=== PATIENT | male | born 1975 | race Hispanic/Latino ===

== ENCOUNTER 2018-12-02 13:07 | Emergency (ER) | payer MEDICARE ==
[2018-12-02] MEDS ORDERED: NACL 0.9% 1000 ML 1,000 ML IV ONE (13:22)
--- NOTE | 2018-12-02 13:22 | Emergency Department Report ---
Chief Complaint: Weakness Stated Complaint: FLU LIKE SYMPTOMS Time Seen by Provider: 12/02/18 13:21 - HPI History of Present Illness: rx hydorcort synthroid zofran omeprozole zyrtec see list cc flu like symptoms weakness pcp none in [place] pcp in [place] [id number] allergy flu shot sulfa singulair lasix trina completed MSE screening note: Focused history and physical exam performed. Due to findings the following was ordered: ED Disposition for MSE Condition: Stable
[2018-12-02 14:09] LABS: Basophils # (Auto) 0.1 K/mm3 (0.0-0.1); Basophils % (Auto) 0.7 % (0.0-1.8); Eosinophils # (Auto) 0.2 K/mm3 (0.0-0.4); Eosinophils % (Auto) 1.6 % (0.0-4.3); Hematocrit 38.8 % (35.5-45.6); Hemoglobin 12.7 gm/dl (11.8-15.2); Lymphocytes # (Auto) 1.7 K/mm3 (1.2-5.4); Lymphocytes % (Auto) 13.4 % (13.4-35.0); Mean Corpuscular HGB Conc 33 % (32-34); Mean Corpuscular Volume 87 fl (84-94); Monocytes # (Auto) 1.1 K/mm3 (0.0-0.8); Monocytes % (Auto) 8.6 % (0.0-7.3); Platelet Count 244 K/mm3 (140-440); Red Blood Count 4.45 M/mm3 (3.65-5.03); Red Cell Distribution Width 15.1 % (13.2-15.2)
[2018-12-02 14:31] LABS: Creatine Kinase MB 1.7 ng/mL (0.0-4.0)
--- NOTE | 2018-12-02 14:36 | XRay Report ---
ROUTINE CHEST, TWO VIEWS: HISTORY: Weakness. The trachea, heart, mediastinal contour, lung shepherd and bony thorax are unremarkable. IMPRESSION: Unremarkable chest x-ray.
[2018-12-02 14:37] LABS: Alanine Aminotransferase 37 units/L (7-56); Albumin 4.1 g/dL (3.9-5); BUN/Creatinine Ratio 18; Blood Urea Nitrogen 16 mg/dL (9-20); Calcium 9.3 mg/dL (8.4-10.2); Hemolysis Index 5
[2018-12-02 14:42] LABS: Free T4 (Free Thyroxine) 2.03 ng/dL (0.76-1.46)
[2018-12-02] MEDS ORDERED: ZOFRAN IV ONE (17:29)
--- NOTE | 2018-12-02 17:33 | Emergency Department Report ---
ED General Adult HPI - General Chief complaint: Weakness Stated complaint: FLU LIKE SYMPTOMS Time Seen by Provider: 12/02/18 13:21 Source: patient Mode of arrival: Ambulatory Limitations: No Limitations - History of Present Illness Initial comments: Pt is a 43 yo male who presents to the ED with c/o N/V/D that began three days ago. Pt has associated subjective fever, cough, and sore throat. Pt does not report SOB, urinary sx, or any other sx. Pt has a reported hx of secondary adrenal insufficiency, medel hypopituitary, and hypothyroidism. Pt states he sees a supervisor silvering department. Pt states that he takes 50 mg of hydrocortisone daily. Severity scale (0 -10): 0 - Related Data Previous Rx's Medication Instructions Recorded Last Taken Type Promethazine HCl [Phenergan SUPPOS] 25 mg RC Q8HR PRN #10 supp.rect 12/02/18 Unknown Rx Allergies Allergy/AdvReac Type Severity Reaction Status Date / Time calcium carbonate Allergy Unknown Verified 12/02/18 13:23 [From Rolaids] dihydroxyaluminum sodium Allergy Unknown Verified 12/02/18 13:23 carbonate [From Rolaids] influenza virus vaccine ts Allergy Unknown Verified 12/02/18 13:23 [id number] (36 mos,up) [From Fluarix] latex Allergy Unknown Verified 12/02/18 13:23 magnesium hydroxide Allergy Unknown Verified 12/02/18 13:23 [From Rolaids] montelukast [From Singulair] Allergy Unknown Verified 12/02/18 13:23 Sulfa (Sulfonamide Allergy Unknown Verified 12/02/18 13:23 Antibiotics) ED Review of Systems ROS: Stated complaint: FLU LIKE SYMPTOMS Other details as noted in HPI Comment: All other systems reviewed and negative ED Past Medical Hx - Past Medical History Previous Medical History?: Yes Additional medical history: Panhypopituitary, thyroid insuf, secondary adrenal insuf, maiere's, barrets espophagus, GERD - Surgical History Hx Cholecystectomy: Yes Additional Surgical History: Femur fracture - Social History Smoking Status: Never Smoker Substance Use Type: None - Medications Home Medications: Home Medications Medication Instructions Recorded Confirmed Last Taken Type Promethazine HCl [Phenergan SUPPOS] 25 mg RC Q8HR PRN #10 supp.rect 12/02/18 Unknown Rx ED Physical Exam - General Limitations: No Limitations General appearance: alert, in no apparent distress - Head Head exam: Present: atraumatic, normocephalic - Eye Eye exam: Present: normal appearance, PERRL - ENT ENT exam: Present: normal orophraynx, mucous membranes moist - Neck Neck exam: Present: lymphadenopathy (small non tender lymphadenopathy of the left anterior cervical ). Absent: meningismus - Respiratory Respiratory exam: Present: normal lung sounds bilaterally. Absent: respiratory distress, wheezes, rales, rhonchi, stridor, chest wall tenderness, accessory muscle use, decreased breath sounds, prolonged expiratory - Cardiovascular Cardiovascular Exam: Present: regular rate, normal rhythm, normal heart sounds. Absent: systolic murmur, diastolic murmur, rubs, gallop - GI/Abdominal GI/Abdominal exam: Present: soft, normal bowel sounds. Absent: distended, tenderness, guarding, rebound, rigid - Neurological Exam Neurological exam: Present: alert, oriented X3 - Psychiatric Psychiatric exam: Present: normal affect, normal mood - Skin Skin exam: Present: warm, dry, intact ED Course Vital Signs 12/02/18 12/02/18 12/02/18 13:20 18:40 19:43 Temperature 98.2 F 98.8 F Pulse Rate 110 H 95 H 94 H Respiratory 22 16 16 Rate Blood Pressure 128/80 128/67 O2 Sat by Pulse 99 87 99 Oximetry ED Medical Decision Making - Lab Data Result diagrams: 12/02/18 13:59 12/02/18 13:59 Lab Results 12/02/18 12/02/18 12/02/18 Range/Units 13:59 13:59 13:59 WBC 12.9 H (4.5-11.0) K/mm3 RBC 4.45 (3.65-5.03) M/mm3 Hgb 12.7 (11.8-15.2) gm/dl Hct 38.8 (35.5-45.6) % MCV 87 (84-94) fl MCH 29 (28-32) pg MCHC 33 (32-34) % RDW 15.1 (13.2-15.2) % Plt Count 244 (140-440) K/mm3 Lymph % (Auto) 13.4 (13.4-35.0) % [place] % (Auto) 8.6 H (0.0-7.3) % Eos % (Auto) 1.6 (0.0-4.3) % Baso % (Auto) 0.7 (0.0-1.8) % Lymph # 1.7 (1.2-5.4) K/mm3 [place] # 1.1 H (0.0-0.8) K/mm3 Eos # 0.2 (0.0-0.4) K/mm3 Baso # 0.1 (0.0-0.1) K/mm3 Seg Neutrophils % 75.7 H (40.0-70.0) % Seg Neutrophils # 9.8 H (1.8-7.7) K/mm3 Sodium 140 (137-145) mmol/L Potassium 4.6 (3.6-5.0) mmol/L Chloride 104.3 (98-107) mmol/L Carbon Dioxide 24 (22-30) mmol/L Anion Gap 16 mmol/L BUN 16 (9-20) mg/dL Creatinine 0.9 (0.8-1.5) mg/dL Estimated GFR > 60 ml/min BUN/Creatinine Ratio 18 % Glucose 95 (75-100) mg/dL Calcium 9.3 (8.4-10.2) mg/dL Total Bilirubin 0.40 (0.1-1.2) mg/dL AST 42 H (5-40) units/L ALT 37 (7-56) units/L Alkaline Phosphatase 127 (35-129) units/L Total Creatine Kinase 49 L (55-170) units/L CK-MB (CK-2) 1.7 (0.0-4.0) ng/mL CK-MB (CK-2) Rel Index 3.4 (0-4) Troponin T < 0.010 (0.00-0.029) ng/mL Total Protein 7.4 (6.3-8.2) g/dL Albumin 4.1 (3.9-5) g/dL Albumin/Globulin Ratio 1.2 % TSH (0.270-4.200) mlU/mL Free T4 (0.76-1.46) ng/dL Urine Color (Yellow) Urine Turbidity (Clear) Urine pH (5.0-7.0) Ur Specific [place] (1.003-1.030) Urine Protein (Negative) mg/dL Urine Glucose (UA) (Negative) mg/dL Urine Ketones (Negative) mg/dL Urine Blood (Negative) Urine Nitrite (Negative) Urine Bilirubin (Negative) Urine Urobilinogen (<2.0) mg/dL Ur Leukocyte Esterase (Negative) Urine WBC (Auto) (0.0-6.0) /HPF Urine RBC (Auto) (0.0-6.0) /HPF U Epithel Cells (Auto) (0-13.0) /HPF 12/02/18 12/02/18 Range/Units 13:59 18:13 WBC (4.5-11.0) K/mm3 RBC (3.65-5.03) M/mm3 Hgb (11.8-15.2) gm/dl Hct (35.5-45.6) % MCV (84-94) fl MCH (28-32) pg MCHC (32-34) % RDW (13.2-15.2) % Plt Count (140-440) K/mm3 Lymph % (Auto) (13.4-35.0) % [place] % (Auto) (0.0-7.3) % Eos % (Auto) (0.0-4.3) % Baso % (Auto) (0.0-1.8) % Lymph # (1.2-5.4) K/mm3 [place] # (0.0-0.8) K/mm3 Eos # (0.0-0.4) K/mm3 Baso # (0.0-0.1) K/mm3 Seg Neutrophils % (40.0-70.0) % Seg Neutrophils # (1.8-7.7) K/mm3 Sodium (137-145) mmol/L Potassium (3.6-5.0) mmol/L Chloride (98-107) mmol/L Carbon Dioxide (22-30) mmol/L Anion Gap mmol/L BUN (9-20) mg/dL Creatinine (0.8-1.5) mg/dL Estimated GFR ml/min BUN/Creatinine Ratio % Glucose (75-100) mg/dL Calcium (8.4-10.2) mg/dL Total Bilirubin (0.1-1.2) mg/dL AST (5-40) units/L ALT (7-56) units/L Alkaline Phosphatase (35-129) units/L Total Creatine Kinase (55-170) units/L CK-MB (CK-2) (0.0-4.0) ng/mL CK-MB (CK-2) Rel Index (0-4) Troponin T (0.00-0.029) ng/mL Total Protein (6.3-8.2) g/dL Albumin (3.9-5) g/dL Albumin/Globulin Ratio % TSH < 0.005 L (0.270-4.200) mlU/mL Free T4 2.03 H (0.76-1.46) ng/dL Urine Color Yellow (Yellow) Urine Turbidity Clear (Clear) Urine pH 5.0 (5.0-7.0) Ur Specific [place] 1.021 (1.003-1.030) Urine Protein <15 mg/dl (Negative) mg/dL Urine Glucose (UA) Neg (Negative) mg/dL Urine Ketones Neg (Negative) mg/dL Urine Blood Neg (Negative) Urine Nitrite Neg (Negative) Urine Bilirubin Neg (Negative) Urine Urobilinogen < 2.0 (<2.0) mg/dL Ur Leukocyte Esterase Neg (Negative) Urine WBC (Auto) 1.0 (0.0-6.0) /HPF Urine RBC (Auto) 1.0 (0.0-6.0) /HPF U Epithel Cells (Auto) < 1.0 (0-13.0) /HPF Vital Signs 12/02/18 12/02/18 12/02/18 13:20 18:40 19:43 Temperature 98.2 F 98.8 F Pulse Rate 110 H 95 H 94 H Respiratory 22 16 16 Rate Blood Pressure 128/80 128/67 O2 Sat by Pulse 99 87 99 Oximetry - Medical Decision Making Pt is a 43 yo male who presents to the ED with c/o N/V/D that began three days ago. Pt has associated subjective fever, cough, and sore throat. Pt does not report SOB, urinary sx, or any other sx. Pt has a reported hx of secondary adrenal insufficiency, medel hypopituitary, and hypothyroidism. Pt states he sees a supervisor silvering department. Pt states that he takes 50 mg of hydrocortisone daily. Labs with mildly elevated WBC and thyroid dysfunction which is known otherwise normal. Pt states they are trying a new regimen with his thyroid medication. UA is normal. vitals are stable, no hypotension or hypertension. Pt given zofran and a liter of fluids. Pt able to tolerate PO intake. Will give pt prescription for phenergan suppository. Advised to continue drinking plenty of fluids and eat a bland diet. Discussed with pt to follow up with PCP and supervisor silvering department in the next 2-3 days. Return to the ED for any new or worsening symptoms. Critical care attestation.: If time is entered above; I have spent that time in minutes in the direct care of this critically ill patient, excluding procedure time. ED Disposition Clinical Impression: Nausea vomiting and diarrhea, Viral syndrome Disposition: TO HOME OR SELFCARE Is pt being admited?: No Does the pt Need Aspirin: No Condition: Stable Instructions: Acute Nausea and Vomiting (ED), Viral Syndrome (ED) Additional Instructions: Please follow up with your primary care doctor in the next 2-3 days. Please follow up with your supervisor silvering department in the next 2-3 days. Continue to drink plenty of fluids. May use phenergan suppository as needed for nausea/vomiting. Return to the emergency room for any new or worsening symptoms. Prescriptions: Promethazine HCl [Phenergan SUPPOS] 25 mg RC Q8HR PRN #10 supp.rect PRN Reason: Nausea And Vomiting Referrals: KAY MCKEON MD [Other] - 2-3 Days your, supervisor silvering department [Other] - 2-3 Days Time of Disposition: 19:23 Print Language: SERBIAN
[2018-12-02] MEDS ORDERED: NACL 0.9% 1000 ML 1,000 ML ONE (18:18)
[2018-12-02 18:47] VITALS: BP 128/67
[2018-12-02 19:03] LABS: Bilirubin,Urine NEG (Negative); Blood,Urine NEG (Negative); Color,Urine Yellow (Yellow); Protein,Urine <15 mg/dL mg/dL (Negative); Urobilinogen,Urine < 2.0 mg/dL (<2.0)
== END 2018-12-02 19:43 | disposition home or self-care (01) ==
LOC: ED 13:07
DX: B34.9 Viral infection, unspecified (principal); K21.9 Gastro-esophageal reflux disease without esophagitis; Z90.49 Acquired absence of other specified parts of digestive tract; Z88.8 Allergy status to other drugs, medicaments and biological substances
CPT/HCPCS: 36415; 71046; 80053; 81001; 82550; 82553; 84439; 84443; 84484; 85025; 93005; 93010; 96361; 96374; 99284; J2405; J7030